=== PATIENT | female | born 1975 | race Caucasian/White ===

== ENCOUNTER 2017-06-11 23:01 | Emergency (ER) | payer OTHER ==
[~2017-06-11] VITALS: Ht 182.9 cm; Wt 71.4 kg
[~2017-06-11 23:01] MED LIST: ESZO3TAB28 PO; GABA-827 PO; GABA800T2 PO; LORA-446 PO; TRAZ100T15 PO
[2017-06-11] MEDS ORDERED: ONDANSETRON 2MG/ML, 2ML ONE (23:24)
[2017-06-11] MEDS ORDERED: HYDROmorphone 1 MG/ML, 1ML ONE (23:24)
[2017-06-11] MEDS ORDERED: HYDROmorphone 1 MG/ML, 1ML IVPush PRN (23:30)
[2017-06-11] MEDS ORDERED: ONDANSETRON 2MG/ML, 2ML IVPush ONE (23:30)
[2017-06-11] MEDS ORDERED: SODIUM CHLORIDE 0.9% 1,000ML IVBOLUS ONE (23:30)
[2017-06-11] MEDS ORDERED: SODIUM CHLORIDE FLUSH 10ML SYR IVF ONE (23:30)
[2017-06-11 23:41] LABS: HEMATOCRIT 40.5 % (34.6-47.8); HEMOGLOBIN 13.6 g/dL (11.7-16.4); WHITE BLOOD COUNT 8.7 x10^3/uL (3.4-10)
[2017-06-11 23:53] LABS: ASPARTATE AMINO TRANSFERASE 8 U/L (15-37); BLOOD UREA NITROGEN 12 mg/dL (7-18)
[2017-06-12 00:52] VITALS: BP 132/81
== END 2017-06-12 00:54 | disposition home or self-care (01) ==
LOC: ED 23:59
DX: R10.11 Right upper quadrant pain (principal); R10.31 Right lower quadrant pain; R11.2 Nausea with vomiting, unspecified; R19.7 Diarrhea, unspecified; Z90.49 Acquired absence of other specified parts of digestive tract; Z90.710 Acquired absence of both cervix and uterus; Z88.6 Allergy status to analgesic agent; Z88.8 Allergy status to other drugs, medicaments and biological substances; F17.200 Nicotine dependence, unspecified, uncomplicated
CPT/HCPCS: 36415; 74022; 80053; 81003; 83690; 85025; 96361; 96374; 96375; 99285; J1170; J2405; J7030

== ENCOUNTER 2017-07-09 10:58 | Emergency (ER) | payer OTHER ==
[~2017-07-09] VITALS: Ht 182.9 cm; Wt 70.7 kg
[2017-07-09] MEDS ORDERED: MAALOX/HYOSCYAMINE/LIDOCAINE 45 ML BTL PO ONE (11:30)
[2017-07-09] MEDS ORDERED: SODIUM CHLORIDE 0.9% 1,000ML IVBOLUS ONE (11:30)
[2017-07-09] MEDS ORDERED: FAMOTIDINE 20 MG/2 ML IVP ONE (11:30)
[2017-07-09] MEDS ORDERED: FAMOTIDINE 20 MG/2 ML ONE (11:50)
[2017-07-09] MEDS ORDERED: MAALOX/HYOSCYAMINE/LIDOCAINE 45 ML BTL ONE (11:50)
[2017-07-09 11:51] LABS: HEMOGLOBIN 13.8 g/dL (11.7-16.4); WHITE BLOOD COUNT 7.8 x10^3/uL (3.4-10)
[2017-07-09] MEDS ORDERED: ONDANSETRON 2MG/ML, 2ML IVPush ONE (12:00)
[2017-07-09] MEDS ORDERED: HYDROmorphone 1 MG/ML, 1ML IVPush PRN (12:00)
[2017-07-09 12:03] LABS: ASPARTATE AMINO TRANSFERASE 7 U/L (15-37); BLOOD UREA NITROGEN 10 mg/dL (7-18)
[2017-07-09] MEDS ORDERED: ONDANSETRON 2MG/ML, 2ML ONE (12:08)
[2017-07-09] MEDS ORDERED: HYDROmorphone 1 MG/ML, 1ML ONE (12:08)
[2017-07-09 13:15] VITALS: BP 105/65
== END 2017-07-09 13:18 | disposition home or self-care (01) ==
LOC: ED 12:34
DX: R10.84 Generalized abdominal pain (principal); R11.2 Nausea with vomiting, unspecified; R19.7 Diarrhea, unspecified; Z90.49 Acquired absence of other specified parts of digestive tract
CPT/HCPCS: 36415; 80053; 81003; 83690; 85025; 93005; 96361; 96374; 96375; 99285; J1170; J2405; J7030; S0028